=== PATIENT | male | born 1965 | race Hispanic/Latino ===

== ENCOUNTER 2018-04-03 12:06 | Inpatient (IN) | payer OTHER ==
[~2018-04-03] VITALS: Ht 162.6 cm; Wt 85.9 kg
[2018-04-03] VITALS (8 sets, daily range): BP systolic 109–187; BP diastolic 55–104
[~2018-04-03 12:06] MED LIST: AEC81 PO; FURO20TA4 PO; INSU100C6 SQ; LISI-658 PO; METF-446 PO; NPH,100V11 SQ; SERT100T12 PO; SIMV20TA6 PO
[2018-04-03 12:31] LABS: BASOPHILS % (AUTO) 1.3 % (0.0-5.0); EOSINOPHILS % (AUTO) 1.2 % (0.0-8.0); HEMATOCRIT 43.6 % (42-54); LYMPHOCYTES % (AUTO) 35.2 % (21.0-51.0); MEAN CORPUSCULAR HEMOGLOBIN 29.3 pg (27.0-33.0); MEAN CORPUSCULAR HGB CONC 33.7 g/dL (32.0-36.0); MEAN CORPUSCULAR VOLUME 86.8 fL (79-99); MONOCYTES % (AUTO) 4.2 % (3.0-13.0); NEUTROPHILS % (AUTO) 58.1 % (40.0-77.0); PLATELET COUNT (AUTO) 239 K/uL (130-400); RED BLOOD CELL COUNT(AUTO) 5.02 MIL/uL (4.50-6.20); RED CELL DISTRIBUTION WIDTH 14.7 % (11.0-15.5); WHITE BLOOD COUNT (AUTO) 10.4 K/uL (4.8-10.8)
[2018-04-03 12:39] LABS: CREATININE 1.2 mg/dL (0.5-1.5); POTASSIUM 4.4 mmol/L (3.5-5.1)
[2018-04-03 12:44] LABS: BILIRUBIN,TOTAL 0.6 mg/dL (0.2-1.0); INR 1.03 (0.85-1.15); PARTIAL THROMBOPLASTIN TIME 29.6 SEC (26.3-35.5); PROTHROMBIN TIME 10.8 SEC (9.6-11.6); TOTAL PROTEIN, SERUM 9.4 g/dL (6.0-8.3)
[2018-04-03] MEDS ORDERED: IOHEXOL-350 75 ML VIAL IV ONE (12:44)
[2018-04-03 12:53] LABS: B-TYPE NATRIURETIC PEPTIDE 51 pg/mL (0-100)
[2018-04-03 13:37] LABS: APPEARANCE,URINE Clear (CLEAR); BILIRUBIN,URINE Negative (NEGATIVE); COLOR,URINE Yellow (YELLOW); GLUCOSE, URINE (UA) >=1000 mg/dL (NEGATIVE); KETONES,URINE Trace mg/dL (NEGATIVE); LEUKOCYTE ESTERASE ,URINE Negative (NEGATIVE); NITRATE,URINE Negative (NEGATIVE); OCCULT BLOOD,URINE Negative (NEGATIVE); PH,URINE 6.5 (5.0-8.0); PROTEIN,URINE POS 1+ (NEGATIVE)
[2018-04-03 13:43] LABS: AMPHET/METH SCREEN,URINE NEGATIVE (NEGATIVE); BARBITURATE SCREEN, URINE NEGATIVE (NEGATIVE); BENZODIAZEPINES SCREEN,URINE NEGATIVE (NEGATIVE); CANNABINOID SCREEN,URINE NEGATIVE (NEGATIVE); COCAINE SCREEN,URINE NEGATIVE (NEGATIVE); OPIATE SCREEN,URINE POSITIVE (NEGATIVE); PHENCYCLIDINE SCREEN,URINE NEGATIVE (NEGATIVE)
[2018-04-03 14:06] LABS: BACTERIA,URINE Rare /HPF (None Seen); RBC,URINE None Seen /HPF (0-1); SQUAMOUS EPITHELIAL CELL,UR 0-2 /HPF (0-2); WBC,URINE None Seen /HPF (0-1)
[2018-04-03] MEDS ORDERED: ENOXAPARIN SODIUM 100 MG/1 ML SQ ONE (14:26)
[2018-04-03] MEDS ORDERED: HYDROCODONE/ACETAMINOPHEN 10/325 MG TAB ONE (15:46)
[2018-04-03] MEDS: SODIUM CHLORIDE 0.9% 1000ML 1,000 ML IV SCH (17:41)
[2018-04-03] MEDS ORDERED: PANTOPRAZOLE SODIUM 40 MG TABLET.DR PO SCH (18:00)
[2018-04-03] MEDS ORDERED: LISINOPRIL 20 MG TABLET PO SCH (18:28)
[2018-04-03] MEDS ORDERED: HYDROCHLOROTHIAZIDE 25 MG TABLET PO SCH (18:28)
[2018-04-03] MEDS: HYDROCODONE/ACETAMINOPHEN 5/325 MG TAB PO PRN (18:30)
[2018-04-03] MEDS ORDERED: CARV25TA77 PO (19:34)
[2018-04-03] MEDS ORDERED: BUSP15 PO (19:35)
[2018-04-03] MEDS ORDERED: LISI40TA4 PO (19:36)
[2018-04-03] MEDS ORDERED: PRAZ2CAP2 PO (19:37)
[2018-04-03] MEDS ORDERED: ATOR20TA PO (19:37)
[2018-04-03] MEDS ORDERED: MIRT45TA83 PO (19:38)
[2018-04-03] MEDS ORDERED: TRAZ-187 PO (19:39)
[2018-04-03] MEDS ORDERED: ESCI20TA PO (19:40)
[2018-04-03] MEDS ORDERED: INSU100V12 SQ (19:44)
[2018-04-03] MEDS ORDERED: HYDRALAZINE HCL 20 MG/ML VIAL IV PRN (19:45)
[2018-04-03] MEDS ORDERED: CLONIDINE HCL 0.1 MG TABLET PO PRN (19:45)
[2018-04-03] MEDS: ENOXAPARIN SODIUM 80 MG/0.8 ML SQ SCH (20:18)
[2018-04-03] MEDS ORDERED: CEPH500T PO (20:35)
[2018-04-03] MEDS: PRAZOSIN HCL 3 MG PO SCH (21:00)
[2018-04-03] MEDS: CARVEDILOL 25 MG TABLET PO SCH (21:09)
[2018-04-03] MEDS: TRAZODONE HCL 100 MG TABLET PO SCH (21:09)
[2018-04-03] MEDS: BUSPIRONE HCL 5 MG TABLET PO SCH (21:09)
[2018-04-03] MEDS: MIRTAZAPINE 15 MG TABLET PO SCH (21:09)
[2018-04-03] MEDS: INSULIN HUMULIN R 100 UNIT/ML 3ML SQ SCH (21:10)
[2018-04-04] VITALS (20 sets, daily range): BP systolic 92–154; BP diastolic 55–91
[2018-04-04] MEDS: SODIUM CHLORIDE 0.9% 1000ML 1,000 ML IV SCH ×2 (02:41→18:55)
[2018-04-04 04:00] LABS: HEMATOCRIT 39.1 % (42-54); MEAN CORPUSCULAR HGB CONC 32.5 g/dL (32.0-36.0); MEAN CORPUSCULAR VOLUME 86.3 fL (79-99); NUCLEATED RED BLOOD CELLS 0.1 % (0.0-0.19); PLATELET COUNT (AUTO) 183 K/uL (130-400); RED BLOOD CELL COUNT(AUTO) 4.53 MIL/uL (4.50-6.20); RED CELL DISTRIBUTION WIDTH 14.5 % (11.0-15.5); WHITE BLOOD COUNT (AUTO) 8.1 K/uL (4.8-10.8)
[2018-04-04 04:31] LABS: ALBUMIN 3.1 g/dL (3.5-5.0); BILIRUBIN,TOTAL 0.4 mg/dL (0.2-1.0); POTASSIUM 3.7 mmol/L (3.5-5.1); TOTAL PROTEIN, SERUM 7.4 g/dL (6.0-8.3)
[2018-04-04] MEDS: INSULIN HUMULIN R 100 UNIT/ML 3ML SQ SCH ×4 (06:45→21:00)
[2018-04-04] MEDS: METFORMIN HCL 500 MG TABLET PO SCH ×2 (08:03→16:01)
[2018-04-04] MEDS: HYDROCODONE/ACETAMINOPHEN 5/325 MG TAB PO PRN ×3 (08:03→19:55)
[2018-04-04] MEDS: INSULIN LISPRO 100 UNIT/ML 3ML SQ SCH ×3 (08:09→16:01)
[2018-04-04] MEDS: INSULIN GLARGINE 100 UNITS/ML 10 ML VIAL SQ SCH ×2 (08:10→16:02)
[2018-04-04] MEDS: CITALOPRAM 20 MG TABLET PO SCH (10:01)
[2018-04-04] MEDS: ATORVASTATIN CALCIUM 40 MG TABLET PO SCH (10:01)
[2018-04-04] MEDS: ENOXAPARIN SODIUM 80 MG/0.8 ML SQ SCH ×2 (10:01→19:54)
[2018-04-04] MEDS: CARVEDILOL 25 MG TABLET PO SCH ×2 (10:01→19:53)
[2018-04-04] MEDS: BUSPIRONE HCL 5 MG TABLET PO SCH ×3 (10:01→21:15)
[2018-04-04] MEDS: LISINOPRIL 40 MG TABLET PO SCH (10:02)
[2018-04-04] MEDS: FUROSEMIDE 20 MG TABLET PO SCH (10:02)
[2018-04-04] MEDS ORDERED: LOPERAMIDE HCL 2 MG CAP PO PRN (14:15)
[2018-04-04] MEDS ORDERED: DEXTROSE 50%-WATER 50 ML DISP.SYRIN IV ONE (14:18)
[2018-04-04] MEDS: MIRTAZAPINE 15 MG TABLET PO SCH (19:54)
[2018-04-04] MEDS: TRAZODONE HCL 100 MG TABLET PO SCH (19:54)
[2018-04-04] MEDS: PRAZOSIN HCL 3 MG PO SCH (19:56)
[2018-04-05 03:44] VITALS: BP 131/77
[2018-04-05 04:22] LABS: HEMATOCRIT 38.6 % (42-54); MEAN CORPUSCULAR HEMOGLOBIN 29.2 pg (27.0-33.0); MEAN CORPUSCULAR HGB CONC 33.3 g/dL (32.0-36.0); MEAN CORPUSCULAR VOLUME 87.6 fL (79-99); PLATELET COUNT (AUTO) 186 K/uL (130-400); RED BLOOD CELL COUNT(AUTO) 4.41 MIL/uL (4.50-6.20); RED CELL DISTRIBUTION WIDTH 14.4 % (11.0-15.5); WHITE BLOOD COUNT (AUTO) 8.2 K/uL (4.8-10.8)
[2018-04-05 04:32] LABS: CREATININE 1.1 mg/dL (0.5-1.5); MAGNESIUM 1.6 mg/dL (1.80-2.40); POTASSIUM 4.1 mmol/L (3.5-5.1)
[2018-04-05] MEDS: INSULIN HUMULIN R 100 UNIT/ML 3ML SQ SCH ×4 (05:56→21:00)
[2018-04-05 07:00] VITALS: BP 164/80
[2018-04-05] MEDS: CITALOPRAM 20 MG TABLET PO SCH (07:26)
[2018-04-05] MEDS: ATORVASTATIN CALCIUM 40 MG TABLET PO SCH (07:26)
[2018-04-05] MEDS: LISINOPRIL 40 MG TABLET PO SCH (07:26)
[2018-04-05] MEDS: METFORMIN HCL 500 MG TABLET PO SCH ×2 (07:26→15:45)
[2018-04-05] MEDS: FUROSEMIDE 20 MG TABLET PO SCH (07:26)
[2018-04-05] MEDS: PANTOPRAZOLE SODIUM 40 MG TABLET.DR PO SCH (07:27)
[2018-04-05] MEDS: ENOXAPARIN SODIUM 80 MG/0.8 ML SQ SCH (07:27)
[2018-04-05] MEDS: BUSPIRONE HCL 5 MG TABLET PO SCH ×3 (07:27→21:49)
[2018-04-05] MEDS: CARVEDILOL 25 MG TABLET PO SCH ×2 (07:27→21:49)
[2018-04-05] MEDS: HYDROCODONE/ACETAMINOPHEN 5/325 MG TAB PO PRN ×3 (07:30→21:50)
[2018-04-05] MEDS: INSULIN LISPRO 100 UNIT/ML 3ML SQ SCH ×4 (08:50→16:45)
[2018-04-05] MEDS: INSULIN GLARGINE 100 UNITS/ML 10 ML VIAL SQ SCH ×3 (08:50→16:45)
[2018-04-05] MEDS: SODIUM CHLORIDE 0.9% 1000ML 1,000 ML IV SCH (09:30)
[2018-04-05 11:00] VITALS: BP 117/66
[2018-04-05 16:00] VITALS: BP 127/67
[2018-04-05] MEDS: RIVAROXABAN 15 MG TABLET PO SCH ×2 (17:10→21:50)
[2018-04-05 19:00] VITALS: BP 151/79
[2018-04-05] MEDS ORDERED: MAGNESIUM 2GM PREMIX 50ML 50 ML IV SCH (20:15)
[2018-04-05] MEDS: MIRTAZAPINE 15 MG TABLET PO SCH (21:48)
[2018-04-05] MEDS: TRAZODONE HCL 100 MG TABLET PO SCH (21:49)
[2018-04-05] MEDS: PRAZOSIN HCL 3 MG PO SCH (21:56)
[2018-04-05 23:00] VITALS: BP 135/77
[2018-04-06 03:00] VITALS: BP 117/57
[2018-04-06 04:35] LABS: HEMATOCRIT 38.8 % (42-54); MEAN CORPUSCULAR HEMOGLOBIN 29.2 pg (27.0-33.0); MEAN CORPUSCULAR HGB CONC 33.7 g/dL (32.0-36.0); MEAN CORPUSCULAR VOLUME 86.7 fL (79-99); PLATELET COUNT (AUTO) 175 K/uL (130-400); RED BLOOD CELL COUNT(AUTO) 4.47 MIL/uL (4.50-6.20); RED CELL DISTRIBUTION WIDTH 14.6 % (11.0-15.5); WHITE BLOOD COUNT (AUTO) 10.3 K/uL (4.8-10.8)
[2018-04-06] MEDS: HYDROCODONE/ACETAMINOPHEN 5/325 MG TAB PO PRN ×3 (04:48→21:17)
[2018-04-06 05:04] LABS: CREATININE 1.3 mg/dL (0.5-1.5); MAGNESIUM 1.6 mg/dL (1.80-2.40); POTASSIUM 3.9 mmol/L (3.5-5.1)
[2018-04-06] MEDS: INSULIN HUMULIN R 100 UNIT/ML 3ML SQ SCH ×4 (06:20→21:00)
[2018-04-06 07:00] VITALS: BP 105/63
[2018-04-06] MEDS: INSULIN LISPRO 100 UNIT/ML 3ML SQ SCH ×3 (08:00→17:00)
[2018-04-06] MEDS: INSULIN GLARGINE 100 UNITS/ML 10 ML VIAL SQ SCH ×2 (09:25→17:15)
[2018-04-06] MEDS: CARVEDILOL 25 MG TABLET PO SCH ×2 (09:26→21:17)
[2018-04-06] MEDS: FUROSEMIDE 20 MG TABLET PO SCH (09:26)
[2018-04-06] MEDS: RIVAROXABAN 15 MG TABLET PO SCH ×2 (09:26→21:18)
[2018-04-06] MEDS: METFORMIN HCL 500 MG TABLET PO SCH ×2 (09:26→17:11)
[2018-04-06] MEDS: PANTOPRAZOLE SODIUM 40 MG TABLET.DR PO SCH (09:26)
[2018-04-06] MEDS: CITALOPRAM 20 MG TABLET PO SCH (09:26)
[2018-04-06] MEDS: BUSPIRONE HCL 5 MG TABLET PO SCH ×3 (09:27→21:00)
[2018-04-06] MEDS: LISINOPRIL 40 MG TABLET PO SCH (09:27)
[2018-04-06] MEDS: ATORVASTATIN CALCIUM 40 MG TABLET PO SCH (09:27)
[2018-04-06 11:00] VITALS: BP 120/57
[2018-04-06 16:00] VITALS: BP 105/59
[2018-04-06 19:00] VITALS: BP 139/72
[2018-04-06] MEDS: PRAZOSIN HCL 3 MG PO SCH (21:00)
[2018-04-06] MEDS: TRAZODONE HCL 100 MG TABLET PO SCH (21:17)
[2018-04-06] MEDS: MIRTAZAPINE 15 MG TABLET PO SCH (21:18)
[2018-04-06 23:00] VITALS: BP 128/64
[2018-04-07 03:00] VITALS: BP 117/64
[2018-04-07] MEDS: INSULIN HUMULIN R 100 UNIT/ML 3ML SQ SCH ×2 (07:03→11:24)
[2018-04-07] MEDS: INSULIN GLARGINE 100 UNITS/ML 10 ML VIAL SQ SCH (08:00)
[2018-04-07 08:17] VITALS: BP 137/74
[2018-04-07] MEDS: FUROSEMIDE 20 MG TABLET PO SCH (09:11)
[2018-04-07] MEDS: ATORVASTATIN CALCIUM 40 MG TABLET PO SCH (09:11)
[2018-04-07] MEDS: LISINOPRIL 40 MG TABLET PO SCH (09:11)
[2018-04-07] MEDS: CARVEDILOL 25 MG TABLET PO SCH (09:12)
[2018-04-07] MEDS: CITALOPRAM 20 MG TABLET PO SCH (09:12)
[2018-04-07] MEDS: RIVAROXABAN 15 MG TABLET PO SCH (09:13)
[2018-04-07] MEDS: METFORMIN HCL 500 MG TABLET PO SCH (09:13)
[2018-04-07] MEDS: PANTOPRAZOLE SODIUM 40 MG TABLET.DR PO SCH (09:13)
[2018-04-07] MEDS: HYDROCODONE/ACETAMINOPHEN 5/325 MG TAB PO PRN (09:20)
[2018-04-07] MEDS: INSULIN LISPRO 100 UNIT/ML 3ML SQ SCH ×2 (09:27→11:34)
[2018-04-07] MEDS: BUSPIRONE HCL 5 MG TABLET PO SCH ×2 (10:55→13:59)
[2018-04-07] MEDS ORDERED: RIVA15TA PO (11:45)
[2018-04-07] MEDS ORDERED: RIVA20TA PO (11:45)
[2018-04-07 12:20] VITALS: BP 120/73
== END 2018-04-07 16:50 | disposition home or self-care (01) | DRG 176 ==
LOC: EDH 12:06 → EDHIP 15:50 → 2CH 17:05 → 2DH 04-04 15:42
PROVIDERS: ADMIT Hospitalist; ATTEND Hospitalist
DX: I26.99 Other pulmonary embolism without acute cor pulmonale (principal); F41.9 Anxiety disorder, unspecified; I10 Essential (primary) hypertension; I25.10 Atherosclerotic heart disease of native coronary artery without angina pectoris; K76.0 Fatty (change of) liver, not elsewhere classified; F43.10 Post-traumatic stress disorder, unspecified; E11.65 Type 2 diabetes mellitus with hyperglycemia; F32.9 Major depressive disorder, single episode, unspecified; E78.5 Hyperlipidemia, unspecified; Z79.4 Long term (current) use of insulin; I25.2 Old myocardial infarction; Z79.01 Long term (current) use of anticoagulants; Z99.3 Dependence on wheelchair; Z95.1 Presence of aortocoronary bypass graft; Z91.11 Patient's noncompliance with dietary regimen; Z83.3 Family history of diabetes mellitus; Z82.49 Family history of ischemic heart disease and other diseases of the circulatory system
CPT/HCPCS: 36415; 71045; 71275; 80048; 80053; 80305; 81001; 82948; 83690; 83735; 83880; 84484; 85025; 85027; 85610; 85730; 93005; 93306; 93970; 94760; 97039; J1650; J1815; J3475; J7030; J7070; Q9967

== ENCOUNTER → 2020-03-13 | Outpatient (CLI) | payer OTHER ==
[~2020-03-13] MED LIST changes: -AEC81 PO; +ATOR20TA PO; +BUSP15 PO; +CARV25TA77 PO; +CEPH500T PO; +ESCI20TA PO; +INSU100V12 SQ; +IOHEXOL-350 75 ML VIAL IV ONE; -LISI-658 PO; +LISI40TA4 PO; +MIRT45TA83 PO; -NPH,100V11 SQ; +PRAZ2CAP2 PO; +RIVA15TA PO; +RIVA20TA PO; -SERT100T12 PO; -SIMV20TA6 PO; +TRAZ-187 PO
[2020-03-13 12:33] LABS: CREATININE 1.3 mg/dL (0.5-1.5)
== END | disposition home or self-care (01) ==
LOC: RAH 11:14
PROVIDERS: ATTEND Internal Medicine Cardiovascular Disease
DX: J98.11 Atelectasis (principal); I11.9 Hypertensive heart disease without heart failure; M47.814 Spondylosis without myelopathy or radiculopathy, thoracic region
CPT/HCPCS: 36415; 71275; 82565; 84520; Q9967

== ENCOUNTER → 2020-03-21 | Outpatient (CLI) | payer OTHER ==
[~2020-03-21] MED LIST changes: -IOHEXOL-350 75 ML VIAL IV ONE
== END | disposition home or self-care (01) ==
LOC: SHCH 13:12
PROVIDERS: ATTEND Internal Medicine Cardiovascular Disease
DX: I25.119 Atherosclerotic heart disease of native coronary artery with unspecified angina pectoris (principal)
CPT/HCPCS: 93306

== ENCOUNTER 2020-04-17 06:01 | Observation (INO) | payer OTHER ==
[2020-04-13 09:58] LABS: BASOPHILS % (AUTO) 0.7 % (0.0-5.0); EOSINOPHILS % (AUTO) 1.8 % (0.0-8.0); HEMATOCRIT 42.2 % (42-54); LYMPHOCYTES % (AUTO) 27.8 % (21.0-51.0); MEAN CORPUSCULAR HEMOGLOBIN 28.9 pg (27.0-33.0); MEAN CORPUSCULAR VOLUME 90.4 fL (79-99); MONOCYTES % (AUTO) 7.2 % (3.0-13.0); NEUTROPHILS % (AUTO) 62.3 % (40.0-77.0); PLATELET COUNT (AUTO) 223 K/uL (130-400); RED BLOOD CELL COUNT(AUTO) 4.67 MIL/uL (4.50-6.20); RED CELL DISTRIBUTION WIDTH 12.9 % (11.0-15.5); WHITE BLOOD COUNT (AUTO) 10.1 K/uL (4.8-10.8)
[2020-04-13 10:00] LABS: APPEARANCE,URINE Clear (CLEAR); BILIRUBIN,URINE Negative (NEGATIVE); COLOR,URINE Yellow (YELLOW); GLUCOSE, URINE (UA) 500 mg/dL (NEGATIVE); KETONES,URINE Negative (NEGATIVE); LEUKOCYTE ESTERASE ,URINE Negative (NEGATIVE); NITRATE,URINE Negative (NEGATIVE); OCCULT BLOOD,URINE Negative (NEGATIVE); PROTEIN,URINE POS 1+ mg/dL (NEGATIVE)
[2020-04-13 10:08] LABS: BACTERIA,URINE Rare /HPF (None Seen); RBC,URINE 0-1 /HPF (0-1); SQUAMOUS EPITHELIAL CELL,UR Rare /HPF (0-2); WBC,URINE 0-1 /HPF (0-1)
[2020-04-13 10:11] LABS: INR 0.99 (0.85-1.15); PROTHROMBIN TIME 10.7 SEC (9.6-11.6)
[2020-04-13 10:15] LABS: CREATININE 1.3 mg/dL (0.5-1.5); POTASSIUM 4.6 mmol/L (3.5-5.1)
[2020-04-16 14:00] VITALS: BP 156/75
[~2020-04-17] VITALS: Ht 162.6 cm; Wt 94.5 kg
[2020-04-17] VITALS (21 sets, daily range): BP systolic 126–186; BP diastolic 58–94
--- NOTE | 2020-04-17 06:00 | NUR ---
PREOP PT ARRIVED IN NO DISTRESS. PT ORIENTED TO ROOM AND CALL LIGHT. WILL CONTINUE TO MONITOR PT. PT REPORTED HAVING LOOSE TEETH TO BOTH TOP AND BOTTOM
[~2020-04-17 06:01] MED LIST changes: +ASPI-1197 PO; -CEPH500T PO; +CHOL1CRY2 PO; -ESCI20TA PO; -FURO20TA4 PO; +FURO40TA5 PO; +ISOS10TA8 PO; +LEVO88TA7 PO; +PANT40TA PO; +PIOG30TA70 PO; -RIVA15TA PO; +SODIUM CHLORIDE 0.9% 500ML 500 ML IV SCH
[2020-04-17] MEDS ORDERED: SODIUM CHLORIDE 0.9% 1000ML 1,000 ML IV ONE (06:15)
[2020-04-17] MEDS ORDERED: SODIUM BICARB 50MEQ 50ML VIAL ONE (09:21)
[2020-04-17] MEDS ORDERED: IOHEXOL-350 50ML VIAL IV ONE (09:21)
[2020-04-17] MEDS ORDERED: NICARDIPINE HCL 25 MG/10 ML ML IV ONE (09:21)
[2020-04-17] MEDS ORDERED: NITROGLYCERIN 2 MG/VIAL VIAL IV ONE (09:21)
[2020-04-17] MEDS ORDERED: MIDAZOLAM HCL 1 MG/ML 2ML VIAL ONE (09:21)
[2020-04-17] MEDS ORDERED: HEPARIN SODIUM 1000UNIT/ML 10ML VIAL ONE (09:21)
[2020-04-17] MEDS ORDERED: IOHEXOL 350 MG/ML 100ML INFUS..BTL IV ONE ×2 (09:21→11:12)
[2020-04-17] MEDS ORDERED: LIDOCAINE HCL 2% 20ML ONE (09:22)
[2020-04-17] MEDS ORDERED: FENTANYL CITRATE PF 50 MCG/1 ML 2ML VIAL ONE (09:22)
[2020-04-17] MEDS ORDERED: ASPIRIN 325MG EC TAB 325 MG TABLET.DR PO ONE (11:37)
[2020-04-17] MEDS ORDERED: CLOPIDOGREL BISULFATE 300 MG TAB ONE (11:38)
--- NOTE | 2020-04-17 12:25 | NUR ---
post op received pt and report from alisson denny from clinical laboratory scientist. pt in no distress with left wrist with tr band in place. call light with in reach and pt instructed to call if any s/s of bleeding or hematoma.
[2020-04-17] MEDS ORDERED: DEXTROSE 50%-WATER 50 ML DISP.SYRIN IV PRN ×2 (13:15→13:45)
[2020-04-17] MEDS ORDERED: GLUCAGON 1MG KIT 1 MG ML IM PRN ×2 (13:15→13:45)
[2020-04-17] MEDS ORDERED: SODIUM CHLORIDE 0.9% 10 ML VIAL IVP PRN (13:45)
--- NOTE | 2020-04-17 14:10 | NUR ---
TRANSFER PT TRANSFERRED TO ROOM 410 AND REPORT GIVEN TO LAKSHMI GARCIA. PT IN NO DISTRESS BUT DID ACCIDENTLY BEND IV CATHETER. PT HAS TR BAND TO LEFT WRIST FREE FROM S/S OF BLEEDING OR HEMATOMA AND NURSE INFORMED AIR NEEDS TO BE SLOWLY RELEASED. LAKSHMI VOICED UNDERSTANDING. FAMILY NOTIFIED PT WILL BE ADMITTED
[2020-04-17] MEDS ORDERED: HYDRALAZINE HCL 20 MG/ML VIAL IV SCH (15:45)
--- NOTE | 2020-04-17 15:46 | NUR ---
CONTACT AND SPOKE TO LIGIA HOWELL FOR DR MILLS WAITING FOR CALL BACK FOR PRN MEDICATION CONTACTED DEBBIE WOODSON [phone] WAITING FOR CALLBACK. PER KARTHIK CHARGED NURSE GOT AN ORDER FOR LABETALOL. INFORMED KARTHIK KISER NEED TO SHOW ME ON THE REMOVAL OF TCAR BAND. CONTACTED ALSO AND SPOKE WITH [employer]OE ART EDUCATION PROFESSOR IN DAY SURGERY INFORMED HER THAT I RECEIVED THE REPORT FROM MEJIA GARCIA AND DID RECEIVED THE PT BUT NOT CONFIRMED ON REMOVAL OF TCAR. KARTHIK CHARGED NURSE WILL SHOW ME ON HOW TO DO THE SAID PROCEDURE.
[2020-04-17] MEDS: INSULIN HUMULIN R 100 UNIT/ML 3ML SQ SCH ×2 (16:30→21:00)
[2020-04-17] MEDS ORDERED: INSULIN R PO SS1 SQ SCH (16:30)
[2020-04-17] MEDS ORDERED: LABETALOL 20 MG/4 ML DISP.SYRIN IV SCH (16:54)
[2020-04-17] MEDS ORDERED: FENTANYL CITRATE PF 50 MCG/1 ML 2ML VIAL IVP SCH (17:00)
--- NOTE | 2020-04-17 17:32 | NUR ---
DR. MILLS SEEN PT. VERBAL ORDER TO GIVE LABETALOL 20 MG IV ONCE, FENTANYL 50 MCG IV FOR SEVERE WRIST PAIN, REASSESSED IN 10 MINUTES AND GIVE ANOTHER DOSE OF FENTANYL 50 MCG IV FOR SEVERE WRIST PAIN. VORB AND CONFIRMED. CONTACTED PHARMACY SPOKE WITH PHOEBE INFORMED HIM ABOUT ORDER VERIFIED BY PHOEBE PHARMACIST , GIVEN TO PT. INFORMED KARTHIK CHARGE NURSE. ALSO KARTHIK PULLED 2ML OF AIR ON TC ARM BAND PIGTAIL.
[2020-04-17] MEDS ORDERED: VIT1TABL66 PO (19:59)
[2020-04-17] MEDS ORDERED: TRAZODONE HCL 100 MG TABLET PO SCH (22:30)
[2020-04-17] MEDS ORDERED: MIRTAZAPINE 15 MG TABLET PO SCH (22:30)
[2020-04-17] MEDS ORDERED: CARVEDILOL 25 MG TABLET PO ONE (22:31)
[2020-04-17] MEDS ORDERED: ATORVASTATIN CALCIUM 40 MG TABLET ONE (22:32)
[2020-04-17] MEDS ORDERED: BUSPIRONE HCL 5 MG TABLET PO ONE ×2 (22:34→22:49)
[2020-04-17] MEDS ORDERED: MIRTAZAPINE 15 MG TABLET ONE (22:36)
[2020-04-17] MEDS: BUSPIRONE HCL 5 MG TABLET PO SCH ×2 (23:00)
--- NOTE | 2020-04-17 23:34 | NUR ---
Pt. assessed lying in bed alert and oriented x 3, BP 133/63 HR 95 R 19, O2 sat 98% on RA telemetry noted, right radial site assessed, no bleeding or draining noted, dressing intact. 20 g IV noted to right antecubital saline locked no s/s of swelling, edema or infiltration, medications given, pt. denies pain, verbalizes no complaints bed locked in lowest position side rails x 3, call light within reach will continue to monitor.
--- NOTE | 2020-04-17 23:43 | NUR ---
Pt. takes buspirone 15mg tab tid orally, medication stocked as 5mg. pt. received his daily dose of 15mg
[2020-04-18] MEDS: BUSPIRONE HCL 5 MG TABLET PO SCH ×2 (00:13→09:20)
[2020-04-18] MEDS: CARVEDILOL 25 MG TABLET PO SCH ×2 (00:15→09:30)
[2020-04-18] MEDS: ATORVASTATIN CALCIUM 40 MG TABLET PO SCH ×2 (00:16→09:21)
[2020-04-18 03:40] VITALS: BP 115/78
[2020-04-18] MEDS ORDERED: LEVOTHYROXINE 88 MCG TABLET PO SCH (06:30)
[2020-04-18 06:50] LABS: CREATININE 1.6 mg/dL (0.5-1.5); POTASSIUM 4.8 mmol/L (3.5-5.1)
[2020-04-18] MEDS: INSULIN HUMULIN R 100 UNIT/ML 3ML SQ SCH ×2 (07:15→11:30)
[2020-04-18 08:00] VITALS: BP 145/80
[2020-04-18] MEDS ORDERED: INSULIN LISPRO 100 UNIT/ML 3ML SQ SCH (08:00)
[2020-04-18] MEDS ORDERED: INSULIN GLARGINE 100 UNITS/ML 10 ML VIAL SQ SCH (08:00)
[2020-04-18] MEDS ORDERED: FUROSEMIDE 40 MG TABLET PO SCH (09:00)
[2020-04-18] MEDS ORDERED: LISINOPRIL 40 MG TABLET PO SCH (09:00)
[2020-04-18] MEDS ORDERED: ATORVASTATIN CALCIUM 40 MG TABLET PO SCH (09:00)
[2020-04-18] MEDS ORDERED: PANTOPRAZOLE SODIUM 40 MG TABLET.DR PO SCH (09:00)
[2020-04-18] MEDS ORDERED: ISOSORBIDE MONO 30MG TAB SR PO SCH (09:00)
[2020-04-18] MEDS ORDERED: CLOPIDOGREL BISULFATE 75 MG TAB PO SCH (09:00)
[2020-04-18] MEDS ORDERED: ASPIRIN 81MG TAB.CHEW PO SCH ×2 (09:00)
[2020-04-18] MEDS ORDERED: PIOGLITAZONE HCL 30 MG TAB PO SCH (09:00)
[2020-04-18] MEDS ORDERED: CHOLECALCIFEROL 25 MCG PO SCH (09:00)
[2020-04-18] MEDS ORDERED: CARVEDILOL 25 MG TABLET PO SCH (09:00)
[2020-04-18] MEDS ORDERED: BUSPIRONE HCL 5 MG TABLET PO SCH (09:00)
[2020-04-18 11:00] VITALS: BP 102/54
--- NOTE | 2020-04-18 13:35 | NUR ---
PT PREPARED FOR DISCHARGE BY W/C IN GOOD CONDITION, MET BY HIS FAMILY. UNDERSTANDS DISCHARGE INSTRUCTIONS, IV REMOVED W/O DIFFICULTY OR COMPLICATION. DISMISSED IN GOOD CONDITION W/O COMPLAINT
[2020-04-18] MEDS ORDERED: TRAZODONE HCL 100 MG TABLET PO SCH (21:00)
[2020-04-18] MEDS ORDERED: MIRTAZAPINE 15 MG TABLET PO SCH (21:00)
[2020-04-18] MEDS ORDERED: PRAZOSIN HCL 3 MG PO SCH (21:00)
== END 2020-04-18 12:30 | disposition home or self-care (01) ==
LOC: DAH 06:01 → DAHIP 06:02 → DAH 06:02 → 4BH 14:33 → 4CH 18:42
PROVIDERS: ADMIT Internal Medicine Cardiovascular Disease; ATTEND Internal Medicine Cardiovascular Disease
DX: I25.10 Atherosclerotic heart disease of native coronary artery without angina pectoris (principal); R06.00 Dyspnea, unspecified; I10 Essential (primary) hypertension; Z95.1 Presence of aortocoronary bypass graft
CPT/HCPCS: 36415 ×2; 71045; 80048 ×2; 81001; 82948 ×6; 85025; 85610; 85730; 93005; 93455; 96361; 96372 ×2; 96374; 96375; 99285; A4215; A4216; A4221; A4222; A4223 ×3; A4606; A4663; C1769 ×2; C1874; C1887; C1894; C9604; G0378 ×19; J0360; J1644 ×5; J1815; J2250; J3010 ×2; J3490 ×4; J7030 ×2; Q9965 ×3; Q9967 ×3; 93454; 99156; 99157

== ENCOUNTER → 2020-07-11 | Outpatient (CLI) | payer OTHER ==
[~2020-07-11] MED LIST changes: +IOHEXOL 350 MG/ML 100ML INFUS..BTL IV ONE; -SODIUM CHLORIDE 0.9% 500ML 500 ML IV SCH; +VIT1TABL66 PO
== END | disposition home or self-care (01) ==
LOC: RAH 07:53
PROVIDERS: ATTEND Internal Medicine Cardiovascular Disease
DX: I25.119 Atherosclerotic heart disease of native coronary artery with unspecified angina pectoris (principal)
CPT/HCPCS: 75574; Q9967

== ENCOUNTER → 2023-05-14 | Outpatient (CLI) | payer OTHER ==
[~2023-05-14] MED LIST changes: -LISI40TA4 PO; +LISI40TA9 PO; +METOPROLOL TARTRATE 1 MG/ML 5ML VIAL IV ONE
== END | disposition home or self-care (01) ==
LOC: RAH 07:49
PROVIDERS: ATTEND Internal Medicine Cardiovascular Disease
DX: I25.10 Atherosclerotic heart disease of native coronary artery without angina pectoris (principal); I50.32 Chronic diastolic (congestive) heart failure; R06.00 Dyspnea, unspecified; R53.83 Other fatigue
CPT/HCPCS: 75574; J3490; Q9967